=== PATIENT | male | born 1985 | race American Indian/Alaskan Native ===

== ENCOUNTER 2018-07-04 15:07 | Day surgery (SDC) | payer OTHER ==
[2018-07-04 13:10] VITALS: BMI 23.5
[2018-07-04] MEDS ORDERED: Oxycodone/Acetaminophen 5/325 mg Tab PO PRN (18:47)
[2018-07-04] MEDS ORDERED: cefTRIAXone 1 gm 1 GM/100 ML BAG IVPB ONE (18:55)
[2018-07-04] MEDS ORDERED: Iohexol 240 (50 ml) ONE (18:56)
[2018-07-04] MEDS ORDERED: Midazolam 2 MG/2 ML VIAL ONE (19:03)
[2018-07-04] MEDS ORDERED: Propofol 10 mg/ml Inj (20 ML) ONE (19:03)
[2018-07-04] MEDS ORDERED: HYDROmorphone 0.5 mg/0.5 ml ISec IVP PRN (19:55)
[2018-07-04] MEDS ORDERED: Lidocaine 2% Jelly (Uro-Jet) ONE (20:04)
[2018-07-04 20:33] VITALS: RESP 16
[2018-07-04 20:54] VITALS: BP 118/79; PULSE 59; TEMP 97.6; O2SAT 100
[2018-07-04] MEDS: Gentamicin 80 mg in 0.9% NS 80 MG/100 ML BAG IVPB SCH ×2 (21:11→21:12)
--- NOTE | 2018-07-05 05:47 | HP ---
HISTORY OF PRESENT ILLNESS: A very pleasant gentleman, having an emergency severe renal colic. Mr. Shaw is a gentleman who presented initially to with severe renal colic since his initial presentation. I then saw him in the office, and I have been discussing with him options for treatments and for various reasons. He is very pleasant and a little bit noncompliant about his care. He has not come back till today, but he presented actually to the emergency room. He called me again that the pain has been on and off but he has been staining his urine. It is only a 3 mm stone according to the CAT scan from but still he is having pain on and off, and he is sure that he has not passed it. He has been straining his urine. We are trying as best as we can. He has no fever, chills, nausea, vomiting on every day basis, but he said it comes and goes. There is feeling that he has to go to bathroom and cannot go. He is feeling that he wants to go and nothing is coming out so much. He has intermittent pain. He takes some pain medicine as needed, and he would like the stone treated. We discussed option. We discussed shock wave lithotripsy. We discussed various options. PAST MEDICAL AND SURGICAL HISTORY: Essentially unremarkable. No history of diabetes, CVA, [place]. Socially, he works loading docks and lifting things. MEDICATIONS: recent analgesics and pain medicines. Socially, he has a friend that escorted him. PHYSICAL EXAMINATION: GENERAL: Well nourished male, in no apparent distress. VITAL SIGNS: Within normal limits in the chart. ABDOMEN: Overall soft and nontender. Flank mass appreciated. GENITOURINARY: Normal male phallus without discharge. No testicular masses. LABS: See chart. DIAGNOSES: Urolithiasis, hematuria, severe renal colic from small stone. We discussed options and explained that may be the stone is even passed and he has had some residual infection or the possibility that he still has stone exist. He said he definitely did not pass. Although, I told sometimes but it did. After discussing various options with the patient, the plan is as follows. Bring him as an emergency admission. We are planning for cystoscopy and at least a stent insertion on the right side. We may also even offer a right ureteroscopy and do right laser lithotripsy or right stone basketing. I explained to the patient that their first goal feel better once we are able to drain the kidney most likely. The plan is as follows: 1. Antibiotic prophylaxis. 2. Cystoscopy. 3. Ureteroscopy. 4. Possible stent placement. 5. Possible ureteroscopy and laser. 6. Possible stone basketing depending on how he does clinically. Risks and benefits discussed at length. We will plan to proceed. Guanaco Poe MD
--- NOTE | 2018-07-05 14:31 | RAD ---
Date of service: 07/04/2018 HISTORY: RT RENAL COLIC COMPARISON: None available. FINDINGS: BOWEL: Nonobstructive bowel gas pattern. Mild constipation. BONES: No acute osseous abnormality is detected. OTHER FINDINGS: Pelvic calcification, likely phlebolith. No coarse calcifications suspected renal or ureteral appreciated. Probable vascular calcification, left pelvis. IMPRESSION: No acute findings identified. See above.
--- NOTE | 2018-07-05 14:50 | RAD ---
Date of service: 07/04/2018 PROCEDURE: Intraoperative Fluoroscopy. HISTORY: RT RENAL COLIC FINDINGS: Fluoroscopic assistance was provided for cystogram and stent placement.. Please refer to the operative report from ADONAY Gonzalez DR, MD. Total fluoroscopic time (continuous mode) utilized during the procedure 19.0 seconds. Dose report: DLP [id number] (mGy/m2)
--- NOTE | 2018-07-18 03:14 | HP ---
CHIEF COMPLAINT: Severe right renal colic. HISTORY OF PRESENT ILLNESS: Mr. Shaw is a very pleasant gentleman, somewhat noncompliant, who I initially met on 06/28/2018, with severe colic; at that time, we offered him immediate treatment. For various reasons, he has not presented to the emergency room until now. On 07/04/2018, we had been talking to each other. In the interim, he has intermittent pain, sometimes he texts back that he cannot take the pain. did not yet present to the hospital, but today he is presenting with severe pain, we admitted him as emergency and see below the plan, we are going to do an emergency surgical procedure and evaluate the patient for a stone. He has a right ureteral stone identified by CT scan. See the notes and chart and therefore will be followed up. PAST SURGICAL HISTORY AND MEDICAL HISTORY: As listed above, acute CO and CVA. SOCIAL HISTORY: Unremarkable, comes to the office with a female acquaintance, that may be his . Otherwise unremarkable. No history of, otherwise, abuse. MEDICATIONS: See chart. ALLERGIES: SEE CHART. PHYSICAL EXAMINATION: GENERAL: Well-nourished male in no apparent distress. VITAL SIGNS: Within normal limits, included in the chart. LUNGS: Clear. HEART: S1 and S2. ABDOMEN: Overall soft. NEUROLOGIC: No CVA tenderness. No rebound or guarding. RECTAL: Deferred. LABORATORY DATA: See chart. DIAGNOSES: Urolithiasis, hematuria, severe right renal colic, stone disease, hydronephrosis. SUMMARY: The patient is a pleasant gentleman, we just met him. We had offered different options. At this point, we are going to bring him to the hospital as an emergency. We are going to bring him up to the OR for a cystoscopy, ureteroscopy, laser lithotripsy, and stone treatment. Further plans will follow. PLAN: As follows: 1. Antibiotic prophylaxis. 2. To the OR, immediately as outlined. Guanaco Poe MD
--- NOTE | 2018-07-18 07:49 | OP ---
PROCEDURE DATE: 07/04/2018 PREOPERATIVE DIAGNOSES: Urolithiasis, right renal colic, hydronephrosis, and flank pain, severe. POSTOPERATIVE DIAGNOSES: Urolithiasis, right renal colic, hydronephrosis, and flank pain, severe. PROCEDURES: Cystoscopy, right retrograde pyelogram, right ureteral dilation, right ureteroscopy, and insertion of right double-J stent with dangles. SURGEON: Guanaco Poe MD COMPLICATIONS: There were no complications. BLOOD LOSS: Less than 10 mL. INDICATIONS: See history and physical for further details. A very pleasant gentleman, somewhat noncompliant. I initially met him last week and we offered immediate treatment, he presented today with severe pain. We have discussed options including observation. The patient to his knowledge has not passed his stone yet. After discussing options and still having ongoing pain that has been bothering him all weekend, we are brining him to hospital now for a cystoscopy and for the above-listed procedure. UROLOGY OPERATIVE FINDINGS: 1. It looks like he passed his stone. There is some edema around the right ureteral orifice. 2. I did not see any other major abnormalities. He has a history. I have a CAT scan from another hospital where he had a stone, but I definitely did not find one now. Other findings are as follows: Normal anterior urethra with no strictures. The verumontanum is minimally visually occlusive if at all. It is fairly open. All within normal limits for age. We were able to evaluate the ureter nicely and perform ureteroscopy. We had a good look, but there were no appreciable stones. After discussing options with the patient, risks, benefits, treatment alternatives, we discussed shockwave lithotripsy, we discussed ureteroscopy, we discussed conscious sedation. The patient is having ongoing pain and discomfort. After discussing options with him, he is here now for the above-listed procedure. DESCRIPTION OF PROCEDURE: After obtaining informed consent, the patient was placed on the table. Routine monitor placed. Time-outs were called to confirm the patient and positioning. Urethroscope was introduced via urethra. The anterior urethra is normal. No strictures. The verumontanum is minimally visually occlusive, all within normal limits for age. We were able to easily identify the ureteral orifice. I did a retrograde pyelogram. At this point, we placed a wire up to the kidney, and we then put a second wire and dilated the ureter. We easily graduated the ureteroscope. We were able to get good access. we had good vision. The entire procedure was done under fluoroscopic imaging. In addition to the fluoroscopic imaging, we also used the camera to aid my hair or beauty salon assistant to help me. The procedure continued, and we were able to go up and down the entire ureter. We did a retrograde, I did not see any definite stone. seemed like the ureteral orifice was a little bit edematous and ____ pass the stone, but other than that no other abnormalities appreciated. At this point, but with a history of stone, we left stent with the vamshi. Again, to begin with, the stone was very small, 3 mm to 4 mm stone at the [facility] with hydronephrosis. So at this point, good passing of stent . The bladder was emptied and cystoscope removed. The double-J stent was confirmed in good position and we secured it in place with the tape and Tegaderm. The patient tolerated the procedure well without complication. Guanaco Poe MD cc: MD Janae
== END 2018-07-04 20:30 | disposition hospice, home (50) ==
LOC: C.SDS 15:07
PROVIDERS: ATTEND Urology
DX: N13.2 Hydronephrosis with renal and ureteral calculous obstruction (principal); Z86.73 Personal history of transient ischemic attack (TIA), and cerebral infarction without residual deficits; Z91.19 Patient's noncompliance with other medical treatment and regimen
CPT/HCPCS: 52332; 74018; C1725; C1758; C1769; J0696; J1580; Q9966

== ENCOUNTER 2018-12-05 16:43 | Emergency (ER) | payer OTHER ==
[2018-12-05 16:43] VITALS: BMI 23.5
[2018-12-05 17:11] VITALS: BP 138/88; PULSE 73; RESP 16; TEMP 98.5; O2SAT 98
[2018-12-05] MEDS ORDERED: Tdap Vaccine 0.5 ml Vial (10-64 yrs) IM ONE ×2 (17:19→17:28)
--- NOTE | 2018-12-05 17:21 | C.PDOC ---
History Of Present Illness 33 y/o male presents to the ER for evaluation of laceration to right 3rd finger sustained 5 days ago. Patient states that he cut his finger with a blade. Patient reports that he has intermittent bleeding. Denies having fever and chills. Time Seen by Provider: 12/05/18 17:16 Chief Complaint (Nursing): Abnormal Skin Integrity History Per: Patient History/Exam Limitations: no limitations Onset/Duration Of Symptoms: Days Current Symptoms Are (Timing): Still Present Severity: Moderate Past Medical History Reviewed: Historical Data, Nursing Documentation, Vital Signs Vital Signs: Last Vital Signs Temp 98.5 F 12/05/18 17:10 Pulse 73 12/05/18 17:10 Resp 16 12/05/18 17:10 BP 138/88 12/05/18 17:10 Pulse Ox 98 12/05/18 17:10 - Medical History PMH: Kidney Stones, Chronic Kidney Disease Other Surgeries: Hx of surgeries Family History: States: No Known Family Hx - Social History Hx Tobacco Use: Yes Hx Alcohol Use: No Hx Substance Use: No - Immunization History Hx Tetanus Toxoid Vaccination: No Hx Influenza Vaccination: No Hx Pneumococcal Vaccination: No Review Of Systems Except As Marked, All Systems Reviewed And Found Negative. Constitutional: Negative for: Fever, Chills Skin: Positive for: Other (laceration to right 3rd finger) Physical Exam - Physical Exam Appears: Non-toxic, No Acute Distress Skin: Normal Color, Warm, Dry, Other (1.5 cm healing laceration to volar aspect of distal phalanx of right 3rd finger, no active bleeding, no signs of infection) Head: Atraumatic, Normacephalic Eye(s): bilateral: Normal Inspection Nose: Normal Oral Mucosa: Moist Neck: Supple Chest: Symmetrical Extremity: Normal ROM Neurological/Psych: Oriented x3, Normal Speech ED Course And Treatment O2 Sat by Pulse Oximetry: 98 (RA) Pulse Ox Interpretation: Normal Progress Note: Finger was soaked in saline and betadine. Steri strips were applied to finger.Patient has been discharged and instructed to follow up with PMD in 1-2 days. Disposition - Disposition Referrals: J Carlos Bailon MD [Staff Provider] - Disposition: HOME/ ROUTINE Disposition Time: 17:20 Condition: STABLE Additional Instructions: Follow up with PMD within 1-2 days. Return to ED if feel worse. 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 - Scribe Statement The provider has reviewed the documentation as recorded by the Scribe India Smiley Provider Attestation All medical record entries made by the Scribe were at my direction and personally dictated by me. I have reviewed the chart and agree that the record accurately reflects my personal performance of the history, physical exam, medical decision making, and the department course for this patient. I have also personally directed, reviewed, and agree with the discharge instructions and disposition.
== END 2018-12-05 17:31 | disposition home or self-care (01) ==
LOC: C.ER 16:43
DX: S61.212A Laceration without foreign body of right middle finger without damage to nail, initial encounter (principal); W45.8XXA Other foreign body or object entering through skin, initial encounter; Z72.0 Tobacco use; Z23 Encounter for immunization; N18.9 Chronic kidney disease, unspecified